=== PATIENT | female | born 1950 | race Caucasian/White ===

== ENCOUNTER → 2016-04-19 | Outpatient (CLI) | payer MEDICARE ==
--- NOTE | 2016-04-19 09:44 | MM ---
Reason for exam: additional evaluation requested from prior study. Last mammogram was performed 1 year and 7 months ago. History: Patient is postmenopausal. Family history of breast cancer in 2 maternal aunts, premenopausal breast cancer in sister at age 28, and premenopausal breast cancer in mother at age 28. Retro-pectoral saline implants in both breasts, February 2006. Benign stereotactic core biopsy of the right breast, July 06, 2004. Benign stereotactic core biopsy of the right breast, July 06, 2004. Benign stereotactic core biopsy of the left breast, December 01, 2002. Benign stereotactic core biopsy of the left breast, May 01, 2002. Cyst aspiration of the left breast. 2 core biopsies of the left breast. 2 core biopsies of the right breast. Took hormonal contraceptives for 2 years. Took estrogen for 1 year beginning at age 59. Took progesterone for 1 year beginning at age 59. Physical Findings: Nurse did not find any significant physical abnormalities on exam. MG 3D Diag Mammo Imp W/Cad LAMAR Bilateral CC and MLO view(s) were taken. Prior study comparison: September 30, 2014, bilateral MG diagnostic mammo w CAD LAMAR. September 23, 2013, bilateral MG diagnostic mammo w CAD LAMAR. There are scattered fibroglandular densities. Previous mammotome biopsy in the right breast x 2 and in the left breast x 2. No significant new findings when compared with previous films. These results were verbally communicated with the patient and result sheet given to the patient on 04/19/15. ASSESSMENT: Benign, BI-RAD 2 RECOMMENDATION: Routine screening mammogram of both breasts in 1 year.
== END | disposition home or self-care (01) ==
LOC: RADMAMWWP 08:18
PROVIDERS: ATTEND Internal Medicine
DX: R92.8 Other abnormal and inconclusive findings on diagnostic imaging of breast (principal); Z80.3 Family history of malignant neoplasm of breast; Z98.82 Breast implant status
CPT/HCPCS: 77051 ×2; G0204; G0279

== ENCOUNTER → 2016-12-08 | Outpatient (CLI) | payer MEDICARE ==
--- NOTE | 2016-12-08 12:05 | XR ---
"EXAMINATION TYPE: XR chest 2V DATE OF EXAM: 12/08/2016 COMPARISON: 04/12/2016 TECHNIQUE: PA and lateral views submitted. HISTORY: Cough FINDINGS: The lungs are clear and there is no pneumothorax, pleural effusion, or focal pneumonia. Focal nodul ar prominence the right perihilar. Hyperinflation suggests COPD and there are calcified granulomas an d suspicion for a 7 mm right upper lobe pulmonary nodule. No pleural effusion. Biapical pleural thick ening noted. Degenerative change of the spine noted. Subsegmental consolidation right middle lobe. IMPRESSION: 1. COPD with right hilar soft tissue prominence. Underlying adenopathy or mass not excluded. CT chest recommended. 2. Correlate for granulomatous disease with a noncalcified 8 mm nodule in the right upper lobe. 3. Right middle lobe atelectasis or early infiltrate. A Yellow message has been communicated to Saul Ambrosio MD via the [employer] | Critical Result sy stem on 12/08/2016 12:03 PM, Message ID [id number]."
== END | disposition home or self-care (01) ==
LOC: RADXRMAIN 11:39
PROVIDERS: ATTEND Internal Medicine
DX: R91.1 Solitary pulmonary nodule (principal); J44.9 Chronic obstructive pulmonary disease, unspecified
CPT/HCPCS: 71020

== ENCOUNTER → 2016-12-20 | Outpatient (CLI) | payer MEDICARE ==
[2016-12-20 18:22] LABS: Blood Urea Nitrogen 17 mg/dL (7-17); Non-African American GFR(MDRD) >60 (>60 ml/min/1.73 sqM)
--- NOTE | 2016-12-21 05:53 | CT ---
EXAMINATION TYPE: CT chest w con DATE OF EXAM: 12/20/2016 COMPARISON: Chest CT May 05, 2009. Chest x-ray December 08, 2016. HISTORY: Persistent cough, abnormal chest x-ray. CT DLP: 401 mGycm. Automated Exposure Control for Dose Reduction was Utilized. TECHNIQUE: CT scan of the thorax is performed following with IV Contrast, patient injected with 100 mL of Omnipaque 300. FINDINGS: LUNGS: Underlying emphysematous change is redemonstrated. There is redemonstration of mild to moderat e apical scarring bilaterally. There is persistent scattered micronodularity and linear scarring in t he right middle lobe and in the lingula, lingular findings are more prominent versus prior study. The re is some new focal area of micronodularity medially right lower lobe on axial image 44. There is so me additional scattered micronodules in the right upper lobe near axial image 20. There is new 7 x 5 mm nodule in the right upper lobe just anterior to major fissure on axial image 24. No pleural effusi on or pneumothorax is seen bilaterally. Tracheobronchial tree is patent. MEDIASTINUM: There are no greater than 1 cm hilar or mediastinal lymph nodes. No cardiomegaly or pe ricardial effusion is seen. Coronary artery calcification is noted which is noted marker for coronar y artery disease. OTHER: Bilateral breast implants are redemonstrated. There is multilevel mild spurring in the thoraci c spine. There is sclerosis and spurring anteriorly at T9-T10 level. IMPRESSION: Mild emphysematous change with scattered scarring and micronodularity redemonstrated with progression from 2010 CT. Note is made of new 7 x 5 mm right upper lobe nodule that needs follow-up. No suspicious new right hilar mass or adenopathy is noted to correlate with area of concern on chest x-ray. Follow-up chest CT in 6-12 months time is advised as per modified 2017 [employer] rec ommendations.
== END | disposition home or self-care (01) ==
LOC: RADCTMAIN 17:53
PROVIDERS: ATTEND Internal Medicine
DX: J43.9 Emphysema, unspecified (principal); R91.1 Solitary pulmonary nodule
CPT/HCPCS: 82565; 84520; 71260; 36415; Q9967

== ENCOUNTER 2017-01-11 10:46 | Day surgery (SDC) | payer MEDICARE ==
[~2017-01-11 10:46] MED LIST: ALBUTEROL NEB (CONC) 2.5 MG/0.5 ML INHALATION ONE; LACTATED RINGERS 1,000 ML IV ONE; LIDOCAINE 2% (PF) 20 MG/ML 10 ML AMP INHALATION ONE
[2017-01-11 11:06] VITALS: TEMP 97.8
[2017-01-11] MEDS: LACTATED RINGERS 1,000 ML IV SCH ×2 (11:09→11:59)
[2017-01-11] MEDS ORDERED: LIDOCAINE 1% 20 ML VIAL (10MG/ML) FOR IV START INTRADERMA ONE (11:09)
[2017-01-11] MEDS ORDERED: PROPOFOL 10 MG/ML 20 ML VIAL IV ONE (12:23)
[2017-01-11] MEDS ORDERED: MIDAZOLAM 2 MG/2 ML VIAL ONE (12:23)
[2017-01-11] MEDS ORDERED: fentaNYL (PF) 50 MCG/ML 2 ML AMP ONE (12:23)
[2017-01-11] MEDS ORDERED: LIDOCAINE 1% INJ 10MG/ML (20 ML MDV) ONE (12:23)
[2017-01-11] MEDS ORDERED: LIDOCAINE 2% (PF) 20 MG/ML 10 ML AMP INHALATION ONE (12:27)
[2017-01-11 13:10] VITALS: BP 91/62; PULSE 60; RESP 16
--- NOTE | 2017-01-11 15:19 | PCN ---
PROCEDURE NOTE OPERATIVE REPORT: Bronchoscopy and random bronchoalveolar lavage of both lungs. PREOPERATIVE DIAGNOSES: 1. Bronchiectasis. 2. History of atypical mycobacterial infection/mycobacterium avium complex. POSTOPERATIVE DIAGNOSES: 1. Bronchiectasis. 2. History of atypical mycobacterial infection/mycobacterium avium complex. ANESTHESIA USED: IV conscious sedation. PROCEDURE: The patient was prepared according the bronchoscopy protocol. Placed in a supine position. O2 was applied via nasal cannula. We monitored her oxygen saturation continuously, blood pressure was monitored intermittently and cardiac rhythm was continuously monitored. After adequate IV conscious sedation, the left naris was anesthetized with 1 mL of lidocaine. Then, the bronchoscope was advanced through the left naris down to the area of the vocal cords, which were noted to be patent. Lidocaine applied over the vocal cords, and then the bronchoscope was advanced down further. Thorough examination was done of the trachea, lisa, right upper lobe, right middle lobe, right lower lobe, left upper lobe, lingula and left lower lobe. There was clearly evidence of significant. Secretions in the different lobes, and different segments. Random washing was done from the different lobes including the right lower lobe, right lower lobe, right upper lobe, left upper lobe, lingula and left lower lobe. All secretions were suctioned, and they were sent for the further diagnostic studies, mostly concerned about persistent atypical mycobacterial infection. Procedure was well tolerated. No evidence of any immediate complications. MMODL / IJN: [id number] /
== END 2017-01-11 13:27 | disposition home or self-care (01) ==
LOC: ORWHC2ENDO 10:46
PROVIDERS: ATTEND Internal Medicine
DX: J47.9 Bronchiectasis, uncomplicated (principal); R91.1 Solitary pulmonary nodule; F32.9 Major depressive disorder, single episode, unspecified; D71 Functional disorders of polymorphonuclear neutrophils; Z86.19 Personal history of other infectious and parasitic diseases; Z80.1 Family history of malignant neoplasm of trachea, bronchus and lung; Z87.891 Personal history of nicotine dependence; Z80.3 Family history of malignant neoplasm of breast; Z79.899 Other long term (current) drug therapy
CPT/HCPCS: 31624; 99152; 94640; 88108; 88305; 87070; 87205; 87116; 87102; 87206; J2250; J2001 ×2; J3010; J2704

== ENCOUNTER → 2017-05-25 | Outpatient (CLI) | payer MEDICARE ==
--- NOTE | 2017-05-29 09:14 | MM ---
Reason for exam: screening (asymptomatic). Last mammogram was performed 1 year and 1 month ago. History: Patient is postmenopausal. Family history of breast cancer in 2 maternal aunts, premenopausal breast cancer in sister at age 28, and premenopausal breast cancer in mother at age 28. Retro-pectoral saline implants in both breasts, February 2006. Benign stereotactic core biopsy of the right breast, July 06, 2004. Benign stereotactic core biopsy of the right breast, July 06, 2004. Benign stereotactic core biopsy of the left breast, December 01, 2002. Benign stereotactic core biopsy of the left breast, May 01, 2002. Cyst aspiration of the left breast. 2 core biopsies of the left breast. 2 core biopsies of the right breast. Took hormonal contraceptives for 2 years. Took estrogen for 1 year beginning at age 59. Took progesterone for 1 year beginning at age 59. Physical Findings: A clinical breast exam by your physician is recommended on an annual basis and results should be correlated with mammographic findings. MG Screening Mammo Implant/CAD Bilateral CC, MLO, and ID view(s) were taken. Prior study comparison: April 19, 2016, bilateral MG 3d diag mammo imp w/cad LAMAR. September 30, 2014, bilateral MG diagnostic mammo w CAD LAMAR. The breast tissue is heterogeneously dense. This may lower the sensitivity of mammography. Previous mammotome biopsy in the right and left breast. Bilateral prothesis. No significant changes when compared with prior studies. ASSESSMENT: Benign, BI-RAD 2 RECOMMENDATION: Routine screening mammogram of both breasts in 1 year.
== END | disposition home or self-care (01) ==
LOC: RADMAMWWP 12:53
PROVIDERS: ATTEND Internal Medicine
DX: Z12.31 Encounter for screening mammogram for malignant neoplasm of breast (principal)
CPT/HCPCS: 77067

== ENCOUNTER → 2017-07-11 | Outpatient (CLI) | payer MEDICARE ==
--- NOTE | 2017-07-11 16:20 | CT ---
EXAMINATION TYPE: CT chest wo con DATE OF EXAM: 07/11/2017 COMPARISON: 12/20/2016 and 05/05/2009 HISTORY: Follow up pulmonary nodule. CT DLP: 141.[address] of the chest was performed with lung and mediastinal window settings submitted. The la ck of contrast limits evaluation of the vascular, mediastinal and parenchymal structures including th e upper abdomen. LUNGS: Stable right upper lobe pulmonary nodule. Additional adjacent smaller sub-3 mm nodules noted w ithin the right upper lobe as well as a mild bronchiectasis. The findings are believed to be postinfl ammatory in nature. There are calcified nodules within the left upper lobe as well as small sub-4 mm noncalcified nodules. MEDIASTINUM/MAGDALENA: Thoracic aorta is of normal caliber with limited evaluation given lack of contras t. The heart is not enlarged. No evidence for mediastinal mass. No lymph nodes greater than 1cm. UPPER ABDOMEN: No significant abnormality is seen. OTHER: Tiny pericardial effusion or pericardial thickening is stable. IMPRESSION: 1. Postinflammatory nodularity and bronchiectasis within the upper lobes essentially unchanged datin g back to 2009. No concerning nodule is evident
== END | disposition home or self-care (01) ==
LOC: RADCTMAIN 15:42
PROVIDERS: ATTEND Internal Medicine
DX: J47.9 Bronchiectasis, uncomplicated (principal); R91.8 Other nonspecific abnormal finding of lung field
CPT/HCPCS: 71250

== ENCOUNTER → 2018-06-10 | Outpatient (CLI) | payer MEDICARE ==
--- NOTE | 2018-06-12 09:25 | MM ---
Reason for exam: screening (asymptomatic). Last mammogram was performed 1 year and 1 month ago. History: Patient is postmenopausal. Family history of breast cancer in 2 maternal aunts, premenopausal breast cancer in sister at age 28, and premenopausal breast cancer in mother at age 28. Retro-pectoral saline implants in both breasts, February 2006. Benign stereotactic core biopsy of the right breast, July 06, 2004. Benign stereotactic core biopsy of the right breast, July 06, 2004. Benign stereotactic core biopsy of the left breast, December 01, 2002. Benign stereotactic core biopsy of the left breast, May 01, 2002. Cyst aspiration of the left breast. 2 core biopsies of the left breast. 2 core biopsies of the right breast. Took hormonal contraceptives for 2 years. Took estrogen for 1 year beginning at age 59. Took progesterone for 1 year beginning at age 59. Physical Findings: A clinical breast exam by your physician is recommended on an annual basis and results should be correlated with mammographic findings. MG Screening Mammo Implant/CAD Bilateral CC, MLO, and ID view(s) were taken. Prior study comparison: May 25, 2017, bilateral MG screening mammo implant/CAD. April 19, 2016, bilateral MG 3d diag mammo imp w/cad LAMAR. The breast tissue is heterogeneously dense. This may lower the sensitivity of mammography. Previous mammotome biopsy in the right breast x 2 and in the left breast x 2. Retropectoral implants. No significant changes when compared with prior studies. ASSESSMENT: Benign, BI-RAD 2 RECOMMENDATION: Routine screening mammogram of both breasts in 1 year.
== END ==
LOC: RADMAMWWP 12:53
PROVIDERS: ATTEND Internal Medicine
DX: Z12.31 Encounter for screening mammogram for malignant neoplasm of breast (principal)
CPT/HCPCS: 77067

== ENCOUNTER → 2018-06-11 | Outpatient (CLI) | payer MEDICARE ==
--- NOTE | 2018-06-11 10:28 | BD ---
EXAMINATION TYPE: Axial Bone Density DATE OF EXAM: 06/11/2018 Comparison: Prior DEXA bone scan 2010. CLINICAL HISTORY: Height: 66 inches Weight: 130 FRAX RISK QUESTIONS: Alcohol (3 or more units per day): no Family History (Parent hip fracture): no Glucocorticoids (More than 3mos): no (Ex: prednisone, prednisolone, methylprednisolone, dexamethasone, and hydrocortisone). History of Fracture in Adulthood: yes, heels Secondary Osteoporosis: 1. Type 1 Diabetes: no 2. Hyperthyroidism: no 3. Menopause before 45: no 4. Malnutrition: no 5. Chronic liver disease: no Rheumatoid Arthritis: no Current Tobacco Use: no RISK FACTORS HISTORY OF: Family History of Osteoporosis: no Active: yes Diet low in dairy products/other sources of calcium: no Postmenopausal woman: yes Take estrogen and/or progesterone medications: not now How long: estrogen about one year, hormonal contraceptives about 2 years Lost more than 2 inches in height since high school: no, states was about 67.5 inches at one time Frequent falls: no Poor Health: no Hyperparathyroidism: no Adrenal Insufficiency: no MEDICATIONS: Prednisone or other steroids: no Thyroid Medications: no Osteoporosis Medications:no Additional Medications: Zyrtec, calcium, Vitamin D Additional History: EXAM MEASUREMENTS: Bone mineral densitometry was performed using the [employer] [facility]. Bone mineral density as measured about the Lumbar spine is: ----- L1-L4(G/cm2): 0.981 T Score Values are as follows: ----- L2: -2.2 ----- L3: -1.9 ----- L4: -0.9 ----- L1-L4: -1.7 Bone mineral density not previously done at this facility, done elsewhere Bone mineral density about the R hip (g/cm2): 0.850 Bone mineral density about the L hip (g/cm2): 0.822 T Score values are as follows: -----R Neck: -1.3 -----L Neck: -1.6 -----R Total: -1.2 -----L Total: -1.6 Bone mineral density not previously done at this facility, done elsewhere IMPRESSION: Osteopenia (T Score between -2.5 and -1) is now present in both hips and low back. There is slightly increased risk of fracture and the patient may be considered for treatment. Re-Screen 2-5 years. NOTE: T-SCORE=SD OF THE YOUNG ADULT MEAN.
== END | disposition home or self-care (01) ==
LOC: RADBDWWP 07:54
PROVIDERS: ATTEND Internal Medicine
DX: M85.852 Other specified disorders of bone density and structure, left thigh (principal); M85.851 Other specified disorders of bone density and structure, right thigh; M85.88 Other specified disorders of bone density and structure, other site
CPT/HCPCS: 77080

== ENCOUNTER → 2019-05-01 | Outpatient (CLI) | payer MEDICARE ==
--- NOTE | 2019-05-01 23:15 | XR ---
EXAMINATION TYPE: XR chest 2V DATE OF EXAM: 05/01/2019 COMPARISON: A 2517 TECHNIQUE: PA and lateral views submitted. HISTORY: Cough FINDINGS: The lungs are clear and there is no pneumothorax, pleural effusion, or focal pneumonia. There is a n odular density seen in the right upper lobe which is been previously reported. Underlying COPD suspec nghia there is degenerative change of the spine. Appears to be anterior fusion of the lower couple thor acic segments. Biapical pleural thickening noted. Tiny granuloma in the left upper lobe suspected. Ch ronic appearing consolidation along the right heart border is less pronounced relative to the prior e xam. IMPRESSION: 1. Persistent the right upper lobe pulmonary nodule slightly more pronounced on today's exam relative to the prior exam. Repeat CT scan is recommended..
== END | disposition home or self-care (01) ==
LOC: RAD 17:33
PROVIDERS: ATTEND Internal Medicine
DX: R91.1 Solitary pulmonary nodule (principal)
CPT/HCPCS: 71046

== ENCOUNTER → 2019-05-12 | Outpatient (CLI) | payer MEDICARE ==
--- NOTE | 2019-05-13 07:48 | CT ---
EXAMINATION TYPE: CT chest w con DATE OF EXAM: 05/12/2019 COMPARISON: 07/11/2017 and 05/05/2009 HISTORY: Lung nodule and cough CT DLP: 142.8 mGycm Automated exposure control for dose reduction was used. CONTRAST: CT scan of the chest is performed with IV Contrast, patient injected with 100 mL of Isovue 300. FINDINGS: LUNGS: Right upper lobe pulmonary nodule currently measures 4.1 mm versus 5.8 mm previously image 26. Several adjacent sub-3 mm pulmonary nodules are noted. Scattered calcified granulomas are also ident ified. Left basilar linear parenchymal scar. No evidence for infiltrate. Mild bronchiectatic change n oted. Upper lobe parenchymal scarring redemonstrated. MEDIASTINUM: There are no greater than 1 cm hilar or mediastinal lymph nodes. No pericardial effusi on is seen. Thoracic aorta is of normal caliber. The heart is not enlarged. UPPER ABDOMEN: No significant abnormality appreciated. OTHER: No additional significant abnormality is seen. IMPRESSION: 1. Stable pulmonary nodularity dating back to 2009.
== END | disposition home or self-care (01) ==
LOC: RADCTMAIN 16:31
PROVIDERS: ATTEND Internal Medicine
DX: R91.8 Other nonspecific abnormal finding of lung field (principal)
CPT/HCPCS: 82565; 84520; 71260; 36415; Q9967

== ENCOUNTER → 2019-06-19 | Outpatient (CLI) | payer MEDICARE ==
--- NOTE | 2019-06-20 11:24 | MM ---
Reason for exam: screening (asymptomatic). Last mammogram was performed 1 year ago. History: Patient is postmenopausal. Family history of breast cancer in 2 maternal aunts, premenopausal breast cancer in sister at age 28, and premenopausal breast cancer in mother at age 28. Retro-pectoral saline implants in both breasts, February 2006. Benign stereotactic core biopsy of the right breast, July 06, 2004. Benign stereotactic core biopsy of the right breast, July 06, 2004. Benign stereotactic core biopsy of the left breast, December 01, 2002. Benign stereotactic core biopsy of the left breast, May 01, 2002. Cyst aspiration of the left breast. 2 core biopsies of the left breast. 2 core biopsies of the right breast. Took hormonal contraceptives for 2 years. Took estrogen for 1 year beginning at age 59. Took progesterone for 1 year beginning at age 59. Physical Findings: A clinical breast exam by your physician is recommended on an annual basis and results should be correlated with mammographic findings. MG 3D Screen Mammo Imp/Cad Bilateral CC, MLO, and ID view(s) were taken. Prior study comparison: June 10, 2018, bilateral MG screening mammo implant/CAD. May 25, 2017, bilateral MG screening mammo implant/CAD. The breast tissue is heterogeneously dense. This may lower the sensitivity of mammography. No suspicious abnormality. Bilateral retropectoral saline implants. Bilateral biopsy markers noted. No significant changes when compared with prior studies. ASSESSMENT: Negative, BI-RAD 1 RECOMMENDATION: Routine screening mammogram of both breasts in 1 year.
== END | disposition home or self-care (01) ==
LOC: RADMAMWWP 10:51
PROVIDERS: ATTEND Internal Medicine
DX: Z12.31 Encounter for screening mammogram for malignant neoplasm of breast (principal)
CPT/HCPCS: 77063; 77067

== ENCOUNTER → 2020-07-09 | Outpatient (CLI) | payer MEDICARE ==
--- NOTE | 2020-07-15 10:37 | MM ---
Reason for exam: screening (asymptomatic). Last mammogram was performed 1 year and 1 month ago. History: Patient is postmenopausal. Family history of breast cancer in 2 maternal aunts, premenopausal breast cancer in sister at age 28, and premenopausal breast cancer in mother at age 28. Retro-pectoral saline implants in both breasts, February 2006. Benign stereotactic core biopsy of the right breast, July 06, 2004. Benign stereotactic core biopsy of the right breast, July 06, 2004. Benign stereotactic core biopsy of the left breast, December 01, 2002. Benign stereotactic core biopsy of the left breast, May 01, 2002. Cyst aspiration of the left breast. 2 core biopsies of the left breast. 2 core biopsies of the right breast. Took hormonal contraceptives for 2 years. Took estrogen for 11 years beginning at age 59. Took progesterone for 11 years beginning at age 59. Physical Findings: A clinical breast exam by your physician is recommended on an annual basis and results should be correlated with mammographic findings. MG 3D Screen Mammo Imp/Cad Bilateral CC, MLO, and ID view(s) were taken. Prior study comparison: June 19, 2019, bilateral MG 3d screen mammo imp/cad. June 10, 2018, bilateral MG screening mammo implant/CAD. The breast tissue is heterogeneously dense. This may lower the sensitivity of mammography. Previous mammotome biopsy in the right breast x 2 and in the left breast x 2. Retropectoral saline implants. No significant changes when compared with prior studies. ASSESSMENT: Negative, BI-RAD 1 RECOMMENDATION: Routine screening mammogram of both breasts in 1 year.
== END | disposition home or self-care (01) ==
LOC: RADMAMWWP 13:40
PROVIDERS: ATTEND Obstetrics & Gynecology
DX: Z12.31 Encounter for screening mammogram for malignant neoplasm of breast (principal)
CPT/HCPCS: 77063; 77067

== ENCOUNTER → 2020-07-12 | Outpatient (CLI) | payer MEDICARE ==
--- NOTE | 2020-07-13 07:31 | BD ---
EXAMINATION TYPE: Axial Bone Density DATE OF EXAM: 07/13/2020 COMPARISON: 06/11/2018 CLINICAL HISTORY: 70-year-old female M81.0, osteoporosis. Height: 66 IN Weight: 134 LBS FRAX RISK QUESTIONS: History of Fracture in Adulthood: LAMAR HEELS AGE 61 RISK FACTORS HISTORY OF: Active: YES Postmenopausal woman: AGE 59 Take estrogen and/or progesterone medications: YES How lon YEARS MEDICATIONS: Additional Medications: CALCIUM, VIT D, BIO T PELLET, TEMAZAPAM, EXAM MEASUREMENTS: Bone mineral densitometry was performed using the [employer]. Bone mineral density as measured about the Lumbar spine is: ----- L1-L4(G/cm2): 1.068 T Score Values are as follows: ----- L2: -1.8 ----- L3: -1.4 ----- L4: 0.6 ----- L1-L4: -0.9 Bone mineral density has: Increased 9.2% since study of: 06/11/2018 Bone mineral density about the R hip (g/cm2): 0.858 Bone mineral density about the L hip (g/cm2): 0.831 T Score values are as follows: -----R Neck: -1.3 -----L Neck: -1.5 -----R Total: -1.4 -----L Total: -0.7 Bone mineral density has: Increased 5.0% since study of: 06/11/2018 IMPRESSION: Osteopenia (T Score between -2.5 and -1). There is slightly increased risk of fracture and the patient may be considered for treatment. Re-Screen 2-5 years. NOTE: T-SCORE=SD OF THE YOUNG ADULT MEAN.
== END | disposition home or self-care (01) ==
LOC: RADBDWWP 14:14
PROVIDERS: ATTEND Internal Medicine
DX: M85.80 Other specified disorders of bone density and structure, unspecified site (principal)
CPT/HCPCS: 77080

== ENCOUNTER → 2020-08-12 | Outpatient (CLI) | payer MEDICARE ==
--- NOTE | 2020-08-12 07:53 | US ---
EXAMINATION TYPE: US liver DATE OF EXAM: 08/12/2020 COMPARISON: NONE CLINICAL HISTORY: R94.5 Abnormal results of liver function studies. Elevated liver enzymes, patient n ot NPO EXAM MEASUREMENTS: Liver Length: 17.1 cm Gallbladder Wall: 0.2 cm CBD: 0.2 cm Right Kidney: 10.0 x 3.9 x 4.5 cm Pancreas: visualized portions wnl, tail obscured by overlying midline bowel gas Liver: wnl Gallbladder: contracted Evidence for sonographic Garcia's sign: no CBD: wnl Right Kidney: fullness of renal pelvis likely secondary to extrarenal pelvis. IMPRESSION: 1. Liver has a normal appearance. 2. Gallbladder is nondistended and limited in assessment
== END | disposition home or self-care (01) ==
LOC: RADUSWWP 06:59
PROVIDERS: ATTEND Internal Medicine
DX: R94.5 Abnormal results of liver function studies (principal)
CPT/HCPCS: 76705

== ENCOUNTER → 2021-07-14 | Outpatient (CLI) | payer MEDICARE ==
--- NOTE | 2021-07-15 09:31 | MM ---
Reason for exam: screening (asymptomatic). Last mammogram was performed 1 year ago. History: Patient is postmenopausal. Family history of breast cancer in maternal aunt, premenopausal breast cancer in mother, and premenopausal breast cancer in sister. Retro-pectoral saline implants in both breasts, February 2006. Benign stereotactic core biopsy of the right breast, July 06, 2004. Benign stereotactic core biopsy of the right breast, July 06, 2004. Benign stereotactic core biopsy of the left breast, December 01, 2002. Benign stereotactic core biopsy of the left breast, May 01, 2002. Cyst aspiration of the left breast. 2 core biopsies of the left breast. 2 core biopsies of the right breast. Took hormonal contraceptives for 2 years. Taking estrogen for 11 years beginning at age 59. Taking progesterone for 11 years beginning at age 59. Physical Findings: A clinical breast exam by your physician is recommended on an annual basis and results should be correlated with mammographic findings. MG 3D Screen Mammo Imp/Cad Bilateral CC, MLO, and ID view(s) were taken. Prior study comparison: July 09, 2020, bilateral MG 3d screen mammo imp/cad. June 19, 2019, bilateral MG 3d screen mammo imp/cad. The breast tissue is heterogeneously dense. This may lower the sensitivity of mammography. Previous mammotome biopsy in the right breast x 2 and in the left breast x 2. Bilateral retropectoral saline implants. 12 o'clock anterior focal asymmetry right breast is more defined. ASSESSMENT: Incomplete: need additional imaging evaluation, BI-RAD 0 RECOMMENDATION: Special view mammogram of the right breast. (3D) If lesion persists on supplemental views, image directed ultrasound is recommended. [facility] will attempt to contact patient to return for supplemental views and ultrasound if indicated.
== END | disposition home or self-care (01) ==
LOC: RADMAMWWP 07:54
PROVIDERS: ATTEND Obstetrics & Gynecology
DX: Z12.31 Encounter for screening mammogram for malignant neoplasm of breast (principal); Z80.3 Family history of malignant neoplasm of breast
CPT/HCPCS: 77063; 77067

== ENCOUNTER → 2021-07-18 | Outpatient (CLI) | payer MEDICARE ==
--- NOTE | 2021-07-18 09:57 | MM ---
Reason for exam: additional evaluation requested from abnormal screening. Last mammogram was performed less than 1 month ago. History: Patient is postmenopausal. Family history of breast cancer in maternal aunt, premenopausal breast cancer in mother, and premenopausal breast cancer in sister. Retro-pectoral saline implants in both breasts, February 2006. Benign stereotactic core biopsy of the right breast, July 06, 2004. Benign stereotactic core biopsy of the right breast, July 06, 2004. Benign stereotactic core biopsy of the left breast, December 01, 2002. Benign stereotactic core biopsy of the left breast, May 01, 2002. Cyst aspiration of the left breast. 2 core biopsies of the left breast. 2 core biopsies of the right breast. Took hormonal contraceptives for 2 years. Taking estrogen for 11 years beginning at age 59. Taking progesterone for 11 years beginning at age 59. Physical Findings: A clinical breast exam by your physician is recommended on an annual basis and results should be correlated with mammographic findings. MG 3D Work Up W/Cad W/Imp RT CC with magnification, MLO with magnification, and LM view(s) were taken of the right breast. Prior study comparison: July 14, 2021, bilateral MG 3d screen mammo imp/cad. July 09, 2020, bilateral MG 3d screen mammo imp/cad. The breast tissue is heterogeneously dense. This may lower the sensitivity of mammography. Previous mammotome biopsy in the right breast x 2. The 12 o'clock anterior focal asymmetry disperses on additional views. No significant changes when compared with prior studies. ASSESSMENT: Negative, BI-RAD 1 RECOMMENDATION: Return to routine screening mammogram schedule for the right breast.
== END | disposition home or self-care (01) ==
LOC: RADMAMWWP 07:39
PROVIDERS: ATTEND Obstetrics & Gynecology
DX: R92.8 Other abnormal and inconclusive findings on diagnostic imaging of breast (principal)
CPT/HCPCS: 77065; G0279; 77061

== ENCOUNTER → 2021-07-25 | Outpatient (CLI) | payer MEDICARE ==
--- NOTE | 2021-07-25 18:39 | CT ---
EXAMINATION TYPE: CT chest w con DATE OF EXAM: 07/25/2021 COMPARISON: CT dated 05/12/2019 HISTORY: Pulmonary myobacterial infection. CT DLP: 140.9 mGycm Automated exposure control for dose reduction was used. TECHNIQUE: CT scan of the chest is performed with IV Contrast, patient injected with 100ml mL of Isovue 300. FINDINGS: LUNGS: Interval progression of the previously seen nodular infiltration of the right upper lobe curre ntly measuring up to 9 mm compared to 4 mm previously. Newly seen right lower lobe superior segment n odule measuring up to 5 mm. Partial collapse of the middle lobe with bronchiectatic changes and loss of volume, stable. Similar yet milder changes are seen in the lingula. Scarring is seen in the lung a pex bilaterally. Scattered calcified pulmonary granulomas. Patent trachea and main bronchi. No pleura l effusion. MEDIASTINUM: No gross cardiomegaly. No pericardial effusion. Patent major mediastinal vessels. No pat hologically enlarged lymph nodes in the chest. OTHER: Bilateral breast prosthesis. Questionable small hemangioma in segment 5 of the liver, for fur ther ultrasound assessment. Stable degenerative changes of the lower cervical and the lower thoracic spine with partial fusion of T10 and T11 vertebral bodies. Osteopenia. IMPRESSION: Mild interval progression of the previously seen right upper lobe nodules with newly seen right lower lobe superior segment nodule as described above. This could be related to the known mycobacterial in fection however underlying neoplastic process cannot be excluded. Recommend follow-up CT scan in 2-3 months for reassessment. Other interval changes and incidental findings as described above.
== END | disposition home or self-care (01) ==
LOC: RADCTMAIN 14:12
PROVIDERS: ATTEND Internal Medicine
DX: A31.0 Pulmonary mycobacterial infection (principal)
CPT/HCPCS: 82565; 84520; 71260; 36415; Q9967

== ENCOUNTER → 2021-11-28 | Outpatient (CLI) | payer MEDICARE ==
--- NOTE | 2021-11-28 20:14 | CT ---
EXAMINATION TYPE: CT chest w con CT DLP: 121.1 mGycm, Automated exposure control for dose reduction was used. DATE OF EXAM: 11/28/2021 4:42 PM COMPARISON: Multiple CTs of the chest with most recent on 07/25/2021 . CLINICAL INDICATION:Female, 71 years old with history of R91.8 abn lung field; PHH, abn lung field TECHNIQUE: Multiple axial images were obtained through the chest. Sagittal and coronal reformats were created for review. Contrast used:100ml mL of Isovue 300 with IV Contrast Oral contrast used: none. FINDINGS: LUNGS/ PLEURA: Bilateral apical pleural scarring. There is tree-in-bud opacities within the right upp er lobe and to a lesser extent the right lower lobe, left upper lobe and left lower lobe. Some nodule s appear stable while others appear to have resolved and/or are stable. No evidence of focal consolid ation, pneumothorax or pleural effusion. Scattered calcified granulomas. Streaky atelectasis within t he lingula. AIRWAY: Patent and unremarkable. HEART: Size within normal limits. MEDIASTINUM: No gross evidence of adenopathy. VASCULATURE: No aortic aneurysm. MUSCULOSKELETAL: No acute osseous abnormalities, multilevel disc degeneration changes throughout the spine. SOFT TISSUES/LYMPH NODES: Bilateral breast implants are present. Implants appear intact with capsular calcifications. LOWER NECK: No significant findings. UPPER ABDOMEN: No significant findings. IMPRESSION: Findings are overall slightly improved with persistent tree-in-bud opacities when comparing to immedi ate prior 07/25/2021 but worse from 05/12/2019. Findings likely represent infectious/inflammatory proce ss and could relate to patient's known mycobacterial infection reported on prior studies. Continued a ttention on follow-up imaging in 6 -12 months.
== END | disposition home or self-care (01) ==
LOC: RADCTMAIN 15:28
PROVIDERS: ATTEND Internal Medicine Critical Care Medicine
DX: R91.8 Other nonspecific abnormal finding of lung field (principal)
CPT/HCPCS: 82565; 84520; 71260; 36415; Q9967

== ENCOUNTER → 2022-08-15 | Outpatient (CLI) | payer MEDICARE ==
--- NOTE | 2022-08-16 20:48 | MM ---
Reason for Exam: Screening (asymptomatic). Last mammogram was performed 1 year(s) and 2 month(s) ago. Patient History: Menarche at age 13. First Full-Term at age 25. Postmenopausal. Currently using Estrogen, beginning at age 59 for 11 years. Currently using Progesterone, beginning at age 59 for 11 years. Patient used Hormonal Contraceptives for 2 years. Core Biopsy on the Right side. Core Biopsy on the Right side. Core Biopsy on the Left side. Core Biopsy on the Left side. Cyst Aspiration on the Left side. 07/06/2004, Benign Stereotactic Core Biopsy on the right side. 07/06/2004, Benign Stereotactic Core Biopsy on the right side. 12/01/2002, Benign Stereotactic Core Biopsy on the left side. 05/01/2002, Benign Stereotactic Core Biopsy on the left side. 02/2006, Bilateral Implants. Maternal aunt had breast cancer, age 35. Sister had breast cancer, age 28. Mother had breast cancer, age 28. Risk Values: Niall 5 year model risk: 10.4%. NCI Lifetime model risk: 26.0%. Prior Study Comparison: 07/09/2020 Bilateral Screening Mammogram, [facility]. 07/14/2021 Bilateral Screening Mammogram, [facility]. 07/18/2021 Right Diagnostic Mammogram, [facility]. Tissue Density: The breast tissue is heterogeneously dense. This may lower the sensitivity of mammography. Findings: Analyzed By CAD. Bilateral retropectoral saline implants. 12:00 focal asymmetry right breast is unchanged. 2 microclips on either side from prior biopsies. There is no suspicious group of microcalcifications or new suspicious mass in either breast. Overall Assessment: Benign, BI-RAD 2 Management: Screening Mammogram of both breasts in 1 year. . Patient should continue monthly self-breast exams. A clinical breast exam by your physician is recommended on an annual basis. This exam should not preclude additional follow-up of suspicious palpable abnormalities. Note on Niall scores and lifetime risk: 1 .A NIALL SCORE GREATER THAN 3% IS CONSIDERED MODERATE RISK. IF THIS IS THE CASE, CONSIDER SPECIALIST REFERRAL TO ASSESS ELIGIBILITY FOR A RISK REDUCING AGENT. 2. IF OVERALL LIFETIME RISK FOR THE DEVELOPMENT OF BREAST CANCER IS 20% OR HIGHER, THE PATIENT MAY QUALIFY FOR FUTURE SCREENING WITH ALTERNATING MAMMOGRAM AND BREAST MRI. Electronically signed and approved by: Janet Cooper M.D. Radiologist
== END | disposition home or self-care (01) ==
LOC: RADMAMWWP 12:20
PROVIDERS: ATTEND Obstetrics & Gynecology
DX: Z12.31 Encounter for screening mammogram for malignant neoplasm of breast (principal); Z78.0 Asymptomatic menopausal state; Z80.3 Family history of malignant neoplasm of breast
CPT/HCPCS: 77063; 77067

== ENCOUNTER → 2022-09-28 | Outpatient (CLI) | payer MEDICARE ==
[2022-09-29 04:29] LABS: Alternaria alternata IgE <0.10 kU/L; Aspergillus fumagatus IgE <0.10 kU/L; Birch IgE <0.10 kU/L; Cat Epith & Dander IgE <0.10 kU/L; Cladosporian herbarum IgE <0.10 kU/L; Cockroach IgE <0.10 kU/L; Dermato. farinae IgE <0.10 kU/L; Dog Dander IgE <0.10 kU/L; Elm IgE <0.10 kU/L; Maple (Box Elder) IgE <0.10 kU/L; Oak IgE <0.10 kU/L; Ragweed,Common IgE <0.10 kU/L; Red Top (Bentgrass) IgE <0.10 kU/L
== END | disposition home or self-care (01) ==
LOC: LABWHC1 13:34
PROVIDERS: ATTEND Internal Medicine Critical Care Medicine
DX: J47.9 Bronchiectasis, uncomplicated (principal)
CPT/HCPCS: 36415; 82785; 82787; 85008; 86003

== ENCOUNTER → 2022-10-30 | Outpatient (CLI) | payer MEDICARE ==
[2022-10-30 12:28] LABS: Immunoglobulin E 19.3 IU/mL (0.00-114.00)
[2022-10-30 13:41] LABS: IgG Subclass 1 489.2 mg/dL (382.40-928.60); IgG Subclass 2 406.2 mg/dL (241.80-700.30); IgG Subclass 3 26.3 mg/dL (21.82-176.00); IgG Subclass 4 16.7 mg/dL (3.92-86.40)
== END | disposition home or self-care (01) ==
LOC: LABWHC1 08:23
PROVIDERS: ATTEND Internal Medicine Critical Care Medicine
DX: J47.9 Bronchiectasis, uncomplicated (principal)
CPT/HCPCS: 36415; 82785; 82787

== ENCOUNTER → 2022-11-14 | Outpatient (CLI) | payer MEDICARE ==
--- NOTE | 2022-11-14 14:51 | CT ---
INDICATION: Patient age:Female; 72 years old; Reason for study: J47.9 BRONCHIECTASIS, UNCOMPLICATED; [facility]. COMPARISON: Multiple CT chest with most recent 11/28/2021 TECHNIQUE: Multiple thin axial images were obtained through the chest at selected intervals. Prone and supine in spiratory along with supine expiratory images were submitted for review. Please note that due to inte rval acquisition images as defined by high-resolution CT protocol the entire lung parenchyma is not e valuated, therefore small nodular densities may not be visualized. Evaluation of vascular structures , viscera and lymphatics is limited due to lack of intravenous contrast administration. One or more C T dose reduction strategies were utilized during this examination. Total DLP 350.10 mGycm. FINDINGS: LUNGS: Biapical pleural parenchymal scarring redemonstrated. There is no evidence of interstitial thi ckening, significant groundglass opacity, honeycombing or architectural distortion in the lungs. Ther e are regions of bronchiectasis redemonstrated. This is most prominent within the right middle lobe.. No acute area of infiltrative or consolidative change. Scattered calcified granulomas. Improvement i n previously seen tree-in-bud nodular opacities within the right lung from prior examination. Minimal scattered subpleural reticular opacities. LARGE AIRWAYS: Central airways are patent. No dynamic airway collapse on expiratory imaging. PLEURA: No pleural effusion or thickening. HEART AND PERICARDIUM: Heart is normal in size. There is no pericardial effusion. MEDIASTINUM AND MAGDALENA: No mediastinal or hilar lymphadenopathy or soft tissue mass. VESSELS: The thoracic aorta is normal in course and caliber. CHEST WALL AND DIAPHRAGM: Bilateral breast prosthesis LOWER NECK: Normal. UPPER ABDOMEN: Unremarkable. MUSCULOSKELETAL: No acute fracture. IMPRESSION: 1. Regions of bronchiectasis without evidence for significant interstitial lung disease. 2. Improvement of previously seen tree-in-bud opacities within the right lung.
== END | disposition home or self-care (01) ==
LOC: RADCTMAIN 13:41
PROVIDERS: ATTEND Internal Medicine Critical Care Medicine
DX: J47.9 Bronchiectasis, uncomplicated (principal); R91.8 Other nonspecific abnormal finding of lung field
CPT/HCPCS: 71250

== ENCOUNTER → 2022-11-14 | Outpatient (CLI) | payer MEDICARE ==
--- NOTE | 2022-11-14 14:44 | XR ---
EXAMINATION TYPE: XR Hip Complete RT DATE OF EXAM: 11/14/2022 COMPARISON: NONE HISTORY: Pain TECHNIQUE: 2 views submitted FINDINGS: There is no evidence of erosive change or acute fracture. Benign cyst involving the right femoral nec k. Mild arthropathy of the hip joint. IMPRESSION: 1. Mild hip arthropathy. There is a well-circumscribed change involving the femoral neck which likely is related to a benign cyst. If point tenderness correlate with bone scan.
== END | disposition home or self-care (01) ==
LOC: RADXRMAIN 13:52
PROVIDERS: ATTEND Internal Medicine
DX: M16.11 Unilateral primary osteoarthritis, right hip (principal)
CPT/HCPCS: 73502

== ENCOUNTER → 2022-11-15 | Day surgery (SDC) | payer MEDICARE ==
[2022-11-08 10:41] VITALS: BMI 20.9
[~2022-11-15] MED LIST changes: -ALBUTEROL NEB (CONC) 2.5 MG/0.5 ML INHALATION ONE; +DEXAMETHASONE SOD PHOSPHATE 4 MG/ML 1 ML VIAL IV ONE; +GLYCOPYRROLATE 0.2 MG/ML 2 ML VIAL ONE; +KETAMINE 10 MG/ML 20 ML VIAL ONE; -LACTATED RINGERS 1,000 ML IV ONE; +LACTATED RINGERS 1,000 ML IV SCH; +LIDOCAINE 1% (10MG/ML) FOR IV START INTRADERMA PRN; +LIDOCAINE 1% INJ 10MG/ML (5 ML VIAL-PF) INTRAPLEUR ONE; -LIDOCAINE 2% (PF) 20 MG/ML 10 ML AMP INHALATION ONE; +LIDOCAINE 2% INJ 20 MG/ML (2 ML VIAL) ONE; +ONDANSETRON 4 MG/2 ML VIAL IVP ONE; +PROPOFOL 10 MG/ML 20 ML VIAL IV ONE; +RACEPINEPHRINE 2.25% NEB 0.5 ML NEBU INHALATION ONE; +fentaNYL (PF) 50 MCG/1 ML VIAL IVP ONE
[2022-11-15 11:35] VITALS: TEMP 98.2
[2022-11-15 13:32] VITALS: BP 129/70; PULSE 72; RESP 16
--- NOTE | 2022-11-15 14:44 | P.PCN ---
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 The decision was not to treat. The patient was seen by infectious disease. I reviewed the series of CAT scans that were done on this patient over the years between 07/11/2017, 05/02/2021 and 11/28/2021. There was some mild interval progression of the neck infection with some bronchiectatic changes throughout the lung garay in the perihilar and the lower lobes bilaterally. The patient was being seen by me on outpatient basis. She came to the with some increased dyspnea and cough and congestion after she was on a trip to [place]. I did a CAT scan of the chest which showed chronic scarring biapical in addition to some bronchiectatic changes in lung bases. Bronchoscopy was needed to evaluate the patient for any ongoing infections This procedure was done under conscious sedation. Anesthetic is was given by anesthesia the bedside. After achieving adequate sedation, the flexible bronchoscope was inserted through left nostril and was advanced to the upper airway. Examination of the posterior pharynx, larynx, epiglottis and vocal cords were all within normal limits. A total of 2 mL of 1% lidocaine was applied to the vocal cord and following that the bronchoscope was advanced to the upper trachea. Examination tracheal bronchial tree with him. Examination of the lower airways included the trachea, bilateral mainstem bronchi, right upper lobe bronchus, bronchus intermedius, right middle lobe bronchus, right lower lobe bronchus and the various 10 segments on the right. Examination of the left side included the left mainstem bronchus, left upper lobe and left lower lobe bronchus and the various segments on the left. No endobronchial tumors. Scant rest or secretions. The bronchoscope was wedged in the lingula and a total of 80 mL of fluid was infused and 17 mL was suctioned back. Aspirate was nonbloody. The patient had a bronchial lavage of the lingula. Bronchoscope was removed. The patient was transferred to recovery in stable condition. Samples will be sent for microbial cultures and analysis. No complications. The patient was transferred to recovery in stable condition following that the patient was discharged home.
[2022-11-16 13:13] LABS: RBC, Body Fluid 38000 /UL (0-2000)
[2022-11-20 09:05] LABS: Nucleated Cells, Body Fluid 1450 /UL
[2022-11-20 14:22] LABS: Appearance,BF Bloody (Clear)
== END ==
LOC: ORWHC2ENDO 11:13
PROVIDERS: ATTEND Internal Medicine Critical Care Medicine
DX: J47.9 Bronchiectasis, uncomplicated (principal); Z88.2 Allergy status to sulfonamides; Z79.51 Long term (current) use of inhaled steroids; Z79.899 Other long term (current) drug therapy
CPT/HCPCS: 88108; 88305; 89050; 87070; 87205; 87116; 87102; 87206; 31624; J2001 ×2; J2704

== ENCOUNTER → 2023-03-16 | Outpatient (CLI) | payer MEDICARE ==
--- NOTE | 2023-03-16 11:19 | NM ---
EXAMINATION TYPE: NM stress cardiolite complete DATE OF EXAM: 03/16/2023 COMPARISON: NONE CLINICAL INDICATION: Female, 72 years old with history of I25.10 coronary arterioscerosis; TECHNIQUE: After the intravenous administration of 9.7 mCi Tc 99m Sestamibi - Rest images obtained 4 5 minutes post injection. The patient exercised using a DEBBIE protocol and 1 minute prior to peak e xercise was injected with 24.4 mCi Tc 99m Sestamibi - Stress images obtained 15 minutes post injectio n. FINDINGS: Targeted heart rate was achieved during performance of the study. Review of stress and rest SPECT bernie ges demonstrates no distinct perfusion abnormality. Gated analysis shows normal wall motion with an estimated left ventricular ejection fraction of 79 %. IMPRESSION: No scintigraphic evidence for reversible ischemia
--- NOTE | 2023-03-16 12:20 | CA ---
Exercise Nuclear Stress Test Report Name: Shoshana Blanchard Exam Date: 03/16/2023 10:11 Exam Location: [place] [facility] Ht (in): Wt (lb): BSA: Ordering Phys: Saul Ambrosio MD Referring Phys: Saul Ambrosio MD Technologist: RODO,, Age: 72 Gender: F : 1950 Procedure CPT: Indications: I25.10 coronary arteriosclerosis ICD-10 Codes: Patient History: Abnormal EKG and shortness of breath Medications: Meds past 24 hrs: Pretest Chest Pain: STRESS TEST Rohan Protocol Exercise Duration (min:sec): 11:[address] Depressions (mm): Angina Score: Simmons Score: Resting HR (bpm): 70 Peak HR (bpm): 140 Resting BP (mmHg): 120 / 68 Peak BP (mmHg): 188 / 77 MPHR: 149 Target HR: 127 % MPHR: 94 METS: 12.1 Total Dose: Peak Dose: Atropine: Double Product: 10297 BP Response: Stress Termination: max exertion Stress Symptoms: No chest pain or symptoms Stress Summary: ECG ANALYSIS Resting ECG: Normal sinus rhythm with poor R-wave progression Stress ECG: Patient exercised on Rohan protocol for 11 minutes achieving 85% of predicted maximal heart rate without chest pain or diagnostic ST segment depression CONCLUSIONS Excellent exercise tolerance Negative stress test by EKG criteria Dr. Sunday Barrera MD (Electronically Signed) Final Date: 16 March 2023 12:19
== END | disposition home or self-care (01) ==
LOC: RADNMMAIN 08:24
PROVIDERS: ATTEND Internal Medicine
DX: I25.10 Atherosclerotic heart disease of native coronary artery without angina pectoris (principal); R94.31 Abnormal electrocardiogram [ECG] [EKG]; R06.02 Shortness of breath
CPT/HCPCS: 93017; 78452; A9500

== ENCOUNTER → 2023-08-29 | Outpatient (CLI) | payer MEDICARE ==
--- NOTE | 2023-08-30 18:44 | MM ---
Reason for Exam: Screening (asymptomatic). Last screening mammogram was performed 12 month(s) ago. Patient History: Menarche at age 13. First Full-Term at age 25. Postmenopausal. Patient tested for BRCA1 outcome was negative. Patient tested for BRCA2 outcome was negative. Currently using Estrogen, beginning at age 59 for 11 years. Currently using Progesterone, beginning at age 59 for 11 years. Patient used Hormonal Contraceptives for 2 years. Core Biopsy on the Right side. Core Biopsy on the Right side. Core Biopsy on the Left side. Core Biopsy on the Left side. Cyst Aspiration on the Left side. 07/06/2004, Benign Stereotactic Core Biopsy on the right side. 07/06/2004, Benign Stereotactic Core Biopsy on the right side. 12/01/2002, Benign Stereotactic Core Biopsy on the left side. 05/01/2002, Benign Stereotactic Core Biopsy on the left side. 02/2006, Bilateral Implants. Maternal aunt had breast cancer, age 35. Sister had breast cancer, age 28. Mother had breast cancer, age 28. Risk Values: Niall 5 year model risk: 10.5%. NCI Lifetime model risk: 24.9%. Prior Study Comparison: 07/14/2021 Bilateral Screening Mammogram, [facility]. 07/18/2021 Right Diagnostic Mammogram, [facility]. 08/15/2022 Bilateral MG 3D screen mammo imp/cad., [facility]. Tissue Density: The breasts are heterogeneously dense, which may obscure small masses. Findings: Analyzed By CAD. Bilateral retropectoral saline implants. A microclip on either side related to prior biopsy. Areas of asymmetric density and vascular calcifications are unchanged. There is no suspicious group of microcalcifications or new suspicious mass in either breast. Overall Assessment: Benign, BI-RAD 2 Management: Screening Mammogram of both breasts in 1 year. SEE NOTE BELOW IN REGARDS TO PATIENT'S INCREASED 5 YEAR NIALL SCORE AND INCREASED LIFETIME RISK SCORE. Patient should continue monthly self-breast exams. A clinical breast exam by your physician is recommended on an annual basis. This exam should not preclude additional follow-up of suspicious palpable abnormalities. Note on Niall scores and lifetime risk: 1. A Niall score greater than 3% is considered moderate risk. If this is the case, consider specialist referral to assess eligibility for a risk reducing agent. 2. If overall lifetime risk for the development of breast cancer is 20% or higher, the patient may qualify for future screening with alternating mammogram and breast MRI. Electronically signed and approved by: Janet Cooper M.D. Radiologist
== END | disposition home or self-care (01) ==
LOC: RADMAMWWP 09:25
PROVIDERS: ATTEND Internal Medicine
DX: Z12.31 Encounter for screening mammogram for malignant neoplasm of breast (principal); Z78.0 Asymptomatic menopausal state; Z80.3 Family history of malignant neoplasm of breast
CPT/HCPCS: 77063; 77067

== ENCOUNTER → 2023-10-01 | Outpatient (CLI) | payer MEDICARE ==
[2023-10-01 07:59] LABS: African American GFR (CKD) >90 (>60 ml/min/1.73 sqM); Blood Urea Nitrogen 17 mg/dL (7-17); Non-African American GFR(CKD) 87 (>60 ml/min/1.73 sqM)
--- NOTE | 2023-10-01 10:00 | CT ---
EXAMINATION TYPE: CT urogram wo/w con CT DLP: 1630 mGycm, Automated exposure control for dose reduction was used. DATE OF EXAM: 10/01/2023 9:02 AM COMPARISON: None CLINICAL INDICATION:Female, 73 years old with history of R82.89 ABNORMAL FINDINGS CYTOLOGICAL URINE; PHH, blood in urine TECHNIQUE: Urogram with imaging of the abdomen and pelvis. Coronal and sagittal reformats were performed. 2D and 3D reconstructions are performed to assist visualization of the urinary tract on a separate workstat ion. Contrast used:100 mL of Isovue 300 with IV Contrast, Oral contrast used: None. FINDINGS: LOWER CHEST: No significant findings. GENITOURINARY: RIGHT KIDNEY AND URETER: No calculi. No hydronephrosis or hydroureter. No renal mass or other lesions . Limited distal ureter secondary to lack of excreted IV contrast with that said urothelial lesions: no filling defect, dilation, stricture or wall thickening. LEFT KIDNEY AND URETER: No calculi. No hydronephrosis or hydroureter. No renal mass or other lesions. No urothelial lesions: no filling defect, dilation, stricture or wall thickening. URINARY BLADDER: Moderately well distended. Limited evaluation secondary to partial filling of the bl adder with excreted IV contrast. No calculi or obvious mass. REPRODUCTIVE: Unremarkable. ABDOMEN LIVER: Unremarkable. GALLBLADDER AND BILE DUCTS: Unremarkable PANCREAS: Unremarkable. SPLEEN: Unremarkable. ADRENAL GLANDS: Unremarkable. STOMACH AND BOWEL: . No evidence of bowel obstruction. PERITONEUM: No evidence of pneumoperitoneum, free fluid, or adenopathy. VASCULATURE: No evidence of aortic aneurysm. MUSCULOSKELETAL: No acute osseous abnormalities LYMPH NODES: No gross evidence for lymphadenopathy. SOFT TISSUE/ABDOMINAL WALL: Unremarkable IMPRESSION: No evidence of urolithiasis or renal/urothelial neoplasm.
== END | disposition home or self-care (01) ==
LOC: RADCTMAIN 07:28
PROVIDERS: ATTEND Internal Medicine
DX: R82.89 Other abnormal findings on cytological and histological examination of urine (principal); R31.9 Hematuria, unspecified
CPT/HCPCS: 82565; 84520; 74178; 36415; 74400; Q9967